=== PATIENT | female | born 1995 | race Caucasian/White ===

== ENCOUNTER 2023-06-28 18:51 | Inpatient (IN) | payer OTHER ==
[2023-06-28 20:13] VITALS: BMI 23.5
[2023-06-28] MEDS ORDERED: IBUPROFEN 600 MG TABLET (FP) PO PRN (21:39)
[2023-06-28] MEDS ORDERED: POLYETHYLENE GLYCOL (HEALTHYLAX) 3350 17 GM PACKET PO PRN (21:39)
[2023-06-28] MEDS ORDERED: guaiFENesin 600 MG TABLET.ER (FP) PO PRN (21:39)
[2023-06-28] MEDS ORDERED: clonazePAM 0.5 MG ODT TABLETS SL PRN (21:39)
[2023-06-28] MEDS ORDERED: BISMUTH SUBSALICYLATE 524 MG/30 ML PO PRN (21:39)
[2023-06-28] MEDS ORDERED: NALOXONE HCL (KLOXXADO) 8 MG SPRAY NS PRN (21:39)
[2023-06-28] MEDS ORDERED: MAG HYDROX/AL HYDROX/SIMETH 30 ML UNIT-DOSE CUP PO PRN (21:39)
[2023-06-28] MEDS ORDERED: METHOCARBAMOL 500 MG TABLET PO PRN (21:39)
[2023-06-28] MEDS ORDERED: MAGNESIUM HYDROX 2400MG/30ML ORAL SUSPENSION 30 ML CUP PO PRN (21:39)
[2023-06-28] MEDS ORDERED: DICYCLOMINE HCL 10 MG CAPSULE PO PRN (21:39)
[2023-06-28] MEDS ORDERED: NALOXONE HCL 0.4 MG/ML VIAL IM PRN (21:39)
[2023-06-28] MEDS ORDERED: BENZONATATE 200 MG CAPSULE PO PRN (21:39)
[2023-06-28] MEDS ORDERED: ACETAMINOPHEN 325 MG TABLET (FP) PO PRN (21:39)
[2023-06-28] MEDS ORDERED: LOPERAMIDE HCL 2 MG CAPSULE PO PRN (21:39)
[2023-06-28] MEDS ORDERED: BENZOCAINE/MENTHOL (CHLORASEPTIC ) LOZENGE MM PRN (21:39)
[2023-06-28] MEDS ORDERED: cloNIDine HCL 0.1 MG TABLET PO PRN (21:39)
[2023-06-28] MEDS ORDERED: ONDANSETRON *ODT* 4 MG TABLET SL PRN (21:39)
[2023-06-28] MEDS ORDERED: IBUPROFEN 400 MG TABLET (FP) PO PRN (21:39)
[2023-06-28] MEDS ORDERED: methaDONE HCL 10 MG TABLET (FOR DETOX USE ONLY) ONE (22:07)
[2023-06-28] MEDS ORDERED: MELATONIN 5 MG TABLETS ONE (22:07)
[2023-06-28] MEDS: methaDONE HCL 10 MG TABLET (FOR DETOX USE ONLY) PO ONE (22:09)
[2023-06-28] MEDS: THIAMINE 100 MG TABLET PO SCH (22:09)
[2023-06-28] MEDS: MELATONIN 5 MG TABLETS PO SCH (22:09)
[2023-06-28] MEDS: hydrOXYzine PAMOATE 25 MG CAPSULE (FP) PO PRN (23:15)
[2023-06-29] MEDS: PRENATAL VITAMINS W/ FOLIC ACID TABLET (FP) PO SCH (09:57)
[2023-06-29 11:03] LABS: CHLORIDE 104 mmol/L (98-107); POTASSIUM 4.2 mmol/L (3.5-5.1); SODIUM 138 mmol/L (136-145)
[2023-06-29 11:04] LABS: HEMATOCRIT 35.8 % (32.4-45.2); HEMOGLOBIN 11.6 GM/dL (10.7-15.3); MCH 27.6 pg (25.7-33.7); MCHC 32.3 g/dl (32.0-36.0); MEAN CELL VOLUME 85.5 fl (80-96); MEAN PLT VOLUME 11.2 fl (7.5-11.1); PLATELET COUNT 259 10^3/uL (134-434); RBC 4.19 M/mm3 (3.60-5.2); RDW 18.4 % (11.6-15.6)
[2023-06-29 11:07] LABS: CALCIUM 9.6 mg/dL (8.5-10.1)
[2023-06-29 11:08] LABS: ALBUMIN 3.5 g/dl (3.4-5.0); ANION GAP 5 mmol/L (4-13); BLOOD UREA NITROGEN 7.4 mg/dL (7-18); CO2 29 mmol/L (21-32); GLUCOSE,RANDOM 80 mg/dL (74-106)
[2023-06-29 11:11] LABS: CREATININE 0.5 mg/dL (0.55-1.3); SGOT/AST 15 U/L (15-37); SGPT/ALT 19 U/L (13-61)
[2023-06-29 11:12] LABS: TOT PROT 7.5 g/dl (6.4-8.2)
[2023-06-29 11:13] LABS: BILIRUBIN,TOTAL 0.6 mg/dL (0.2-1)
[2023-06-29 11:14] LABS: ALK PHOS 68 U/L (45-117)
[2023-06-30] MEDS: methaDONE HCL 10 MG TABLET (FOR DETOX USE ONLY) PO ONE (09:44)
[2023-07-02] MEDS: methaDONE HCL 10 MG TABLET (FOR DETOX USE ONLY) PO ONE (09:31)
[2023-07-03 09:29] VITALS: BP 132/76; PULSE 85; RESP 18; TEMP 97.7
== END 2023-07-03 10:15 | disposition home or self-care (01) | DRG 773 ==
LOC: YASAS 18:51 → Y6N 22:02
PROVIDERS: ADMIT Allergy & Immunology; ATTEND Surgery
PROC: HZ2ZZZZ Detoxification Services for Substance Abuse Treatment (ICD-10-PCS; principal; 2023-06-28)
DX: F11.23 Opioid dependence with withdrawal (principal); F19.280 Other psychoactive substance dependence with psychoactive substance-induced anxiety disorder; F19.24 Other psychoactive substance dependence with psychoactive substance-induced mood disorder; F41.9 Anxiety disorder, unspecified; Z28.310 Unvaccinated for COVID-19; Z28.9 Immunization not carried out for unspecified reason; Z88.0 Allergy status to penicillin
CPT/HCPCS: 36415; 80053; 80305; 80307; 81025; 85027; 86780; 93005; 93010